=== PATIENT | male | born 1970 | race Caucasian/White ===

== ENCOUNTER 2022-03-13 02:12 | Emergency (ER) | payer MEDICAID ==
[~2022-03-13] VITALS: Ht 175.3 cm; Wt 102.3 kg
[2022-03-13 02:19] VITALS: TEMP 97.2
[2022-03-13 03:13] VITALS: BP 154/80; PULSE 80
== END 2022-03-13 03:13 | disposition home or self-care (01) ==
LOC: COL.ER 02:12
DX: L97.119 Non-pressure chronic ulcer of right thigh with unspecified severity (principal); Z28.310 Unvaccinated for COVID-19